=== PATIENT | female | born 1930 | race Caucasian/White ===

== ENCOUNTER → 2016-12-15 | Outpatient (CLI) | payer MEDICARE, BC ==
--- NOTE | 2016-12-15 15:10 | MR ---
EXAMINATION TYPE: MR shoulder RT wo con DATE OF EXAM: 12/15/2016 1:41 PM COMPARISON: NONE HISTORY: Right shoulder pain with difficulty raising overhead for 2 months after flu shot per patient . Injury of rotator cuff per order. TECHNIQUE: Multiplanar, multisequence imaging of the right shoulder is performed without contrast. FINDINGS: Rotator Cuff: There is full-thickness retracted tear of the supraspinatus muscle retracted to level o f the superior labrum on coronal image 16. There is full-thickness retracted tear of the infraspinatu s muscle retracted to level of distal clavicle. There is fairly moderate to advanced atrophy of muscl e bulk suggesting chronic tears. High riding humeral head is present suggesting chronic tear. Increas ed fluid signal along the atrophied muscle bulk is noted. Teres minor muscle bulk remains intact. The re is increased signal and thickening of the subscapularis tendon. Acromioclavicular Joint: There is spurring and joint space loss at acromioclavicular joint. There is prominent spur from the inferior margin of the distal clavicle on paracoronal image 13. Loss inferior fat plane is present. Glenohumeral Joint: High riding humeral head is noted. There is joint space loss with small to modera te glenohumeral joint effusion. No significant spurring is seen. Labrum: Superior labrum is blunted appearance with increased signal, tear is suspected at biceps anch or. Biceps Tendon: The long head of biceps is in normal location within bicipital groove. Some increased signal and thickening with surrounding fluid is present. Partial tear is suspected. Intra-articular p ortion is not well seen. Bone marrow signal: Heterogeneity consistent with red marrow reconversion is present. Other: No additional significant abnormality is appreciated. IMPRESSION: 1. Full-thickness retracted tears of the supraspinatus and infraspinatus tendons. High riding humeral head and muscular atrophy suggest most likely chronic in age. Edema along course of muscle suggests there could be acute on chronic injury. 2. 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 3. Bicipital tendinosis/partial tear of the intra-articular portion with proximal extra-articular ext ension suspected. 4. Superior labral tear presumed degenerative in etiology.
== END | disposition home or self-care (01) ==
LOC: RADMRIMAIN 13:05
PROVIDERS: ATTEND Psychiatry & Neurology Neurology
DX: S46.011A Strain of muscle(s) and tendon(s) of the rotator cuff of right shoulder, initial encounter (principal); M19.011 Primary osteoarthritis, right shoulder

== ENCOUNTER → 2017-05-29 | Outpatient (CLI) | payer MEDICARE, BC ==
--- NOTE | 2017-05-29 09:51 | ECHOF ---
Referral Reason:I10 Hypertension, I65.23 Occlusion and stenosis of MEASUREMENTS -------- HEIGHT: 154.9 cm WEIGHT: 61.2 kg BP: 183/83 IVSd: 1.3 cm (0.6 - 1.1) LVIDd: 3.6 cm (3.9 - 5.3) LVPWd: 1.3 cm (0.6 - 1.1) IVSs: 1.6 cm LVIDs: 2.0 cm LVPWs: 1.7 cm LAESV Index (A-L): 33.16 ml/m Ao Diam: 2.5 cm (2.0 - 3.7) AV Cusp: 0.8 cm (1.5 - 2.6) LA Diam: 3.7 cm (2.7 - 3.8) MV EXCURSION: 17.007 mm (> 18.000) MV EF SLOPE: 138 mm/s (70 - 150) EPSS: 0.7 cm MV E Jean Claude: 1.13 m/s MV DecT: 210 ms MV A Jean Claude: 1.21 m/s MV E/A Ratio: 0.94 AV maxP.63 mmHg AV meanP.41 mmHg AR PHT: 319 ms RAP: 5.00 mmHg RVSP: 43.42 mmHg FINDINGS -------- Sinus rhythm. This was a technically good study. There is mild concentric left ventricular hypertrophy. Overall left ventricular systolic function is normal with, an EF between 55 - 60 %. The right ventricle is normal in size and function. LA is midly dilated 29-33ml/m2. The right atrium is normal in size. Aortic valve is trileaflet and is severely thickened. Trace amount of aortic regurgitation. There is severe aortic stenosis present. Peak/mean gradient across the Aortic Valve is 56.63mmHg / 31.41mmHg. The mitral valve leaflets are mildly thickened. Mild mitral annular calcification present. Severe mitral regurgitation is present. Moderate tricuspid regurgitation present. There is moderate pulmonary hypertension. The right ventricular systolic pressure, as measured by Doppler, is 43.42mmHg. Pulmonic valve appears structurally normal. The aortic root size is normal. Normal inferior vena cava with normal inspiratory collapse consistent with estimated right atrial pressure of 5 mmHg. The pericardium is normal. CONCLUSIONS -------- 1. Sinus rhythm. 2. There is severe aortic stenosis present. 3. Peak/mean gradient across the Aortic Valve is 56.63mmHg / 31.41mmHg. 4. The mitral valve leaflets are mildly thickened. 5. Mild mitral annular calcification present. 6. Severe mitral regurgitation is present. 7. Moderate tricuspid regurgitation present. 8. There is moderate pulmonary hypertension. 9. The right ventricular systolic pressure, as measured by Doppler, is 43.42mmHg. 10. Pulmonic valve appears structurally normal. 11. The aortic root size is normal. 12. This was a technically good study. 13. Normal inferior vena cava with normal inspiratory collapse consistent with estimated right atrial pressure of 5 mmHg. 14. The pericardium is normal. 15. There is mild concentric left ventricular hypertrophy. 16. Overall left ventricular systolic function is normal with, an EF between 55 - 60 %. 17. The right ventricle is normal in size and function. 18. LA is midly dilated 29-33ml/m2. 19. The right atrium is normal in size. 20. Aortic valve is trileaflet and is severely thickened. 21. Trace amount of aortic regurgitation. HOTEL [employer]INO FLOORPERSON: Teresa Hernandez RDCS
--- NOTE | 2017-05-29 10:12 | US ---
EXAMINATION TYPE: US carotid duplex BILAT DATE OF EXAM: 05/29/2017 COMPARISON: Previous exam 02/16/2014 CLINICAL HISTORY: I10 Hypertension, I65.23 Occlusion and stenosis of. bruit, HTN- on meds EXAM MEASUREMENTS: RIGHT: Peak Systolic Velocity (PSV) cm/sec ----- Right CCA: 59.0 ----- Right ICA: 64.6 ----- Right ECA: 71.7 ICA/CCA ratio: 1.1 RIGHT: End Diastole cm/sec ----- Right CCA: 15.4 ----- Right ICA: 14.0 ----- Right ECA: 7.6 LEFT: Peak Systolic Velocity (PSV) cm/sec ----- Left CCA: 62.4 ----- Left ICA: 63.4 ----- Left ECA: 60.8 ICA/CCA ratio: 1.0 LEFT: End Diastole cm/sec ----- Left CCA: 12.5 ----- Left ICA: 18.0 ----- Left ECA: 0.0 VERTEBRALS (direction of flow): Right Vertebral: Antegrade Left Vertebral: Antegrade No significant stenosis or elevated velocities. Bilateral wall thickening. Plaque seen in bilateral bulbs and left proximal ICA. IMPRESSION: No hemodynamic significant stenosis of the proximal internal carotid arteries bilaterall y by Doppler criteria, an indirect measurement of carotid stenosis
== END | disposition home or self-care (01) ==
LOC: RADECHMAIN 08:16
PROVIDERS: ATTEND Internal Medicine Cardiovascular Disease
DX: I65.23 Occlusion and stenosis of bilateral carotid arteries (principal)
CPT/HCPCS: 93306; 93880

== ENCOUNTER 2019-03-14 10:24 | Emergency (ER) | payer MEDICARE, BC ==
[2019-03-14 10:32] LABS: Glucose,Whole Blood 129 mg/dL (75-99)
--- NOTE | 2019-03-14 10:39 | ED ---
General Adult HPI - General Stated complaint: Altered Mental Status Time Seen by Provider: 03/14/19 10:26 - History of Present Illness Initial comments: Dictation was produced using [employer] dictation software. please excuse any grammatical, word or spelling errors. Chief Complaint: 89-year-old female brought to the emergency department for strokelike symptoms. History of Present Illness: She is 81-year-old female. She has multiple comorbidities including chronic right upper extremity weakness, previous CVAs and TIAs. She was noted to have severe confusion upon waking this morning. She was last seen normal proximal to 1:30 last night. who is at bedside reports that they were playing cards. She woke up this morning and was found to be confused she had repetitive speech and severe aphasia. Patient unable to 5 days. This time secondary to mental status. The ROS documented in this emergency department record has been reviewed and confirmed by me. Those systems with pertinent positive or negative responses have been documented in the HPI. All other systems are other negative and/or noncontributory. PHYSICAL EXAM: General Impression: No acute distress HEENT: Normocephalic atraumatic, extra-ocular movements intact, pupils equal and reactive to light bilaterally, mucous membranes moist. Cardiovascular: Heart regular rate and rhythm, S1&S2 audible, no murmurs, rubs or gallops Chest: Lungs clear to auscultation bilaterally, no rhonchi, no wheeze, no rales Abdomen: Bowel sounds present, abdomen soft, non-tender, non-distended, no organomegaly Musculoskeletal: Pulses present and equal in all extremities, no peripheral edema Motor: no focal deficits noted Neurological: Severely aphasic, right upper extremity drift, right lower extremity drift, does not follow commands, no facial droop Skin: Intact with no visualized rashes Psych: Normal affect and mood ED course: 89-year-old female presents for strokelike symptoms. Last seen normal was 1:32 AM last night. It is outside of the TPA window. Patient given initial NIH of 12. Patient is extremely aphasic and unable to follow commands. CT imaging obtained. CT noncontrast shows no acute processes. CT angios does not show any occluded large vessels. Laboratory evaluation obtained showing no acute processes. Patient observed in our emergency department for several hours with no changes in mental status. Her collateral information was obtained from patient's daughter who is adamant that her symptoms are secondary to complex migraines. Patient however has not seen a neurologist and has not been formally diagnosed or worked up for her neurologic issues. Furthermore, patient has not had any MRIs or extensive neurologic studies or imaging. Daughter does report patient has had symptoms like this in the past. She states that she will take oral analgesics to treat her headache and would revert back to being normal. [place] esparzakai requests that patient be treated for migraine because she feels that patient's symptoms will improve and that she can help make a decision for final disposition from our emergency room. Patient treated with aspirin. Patient was observed in emergency department for several hours per she is reevaluated after headache cocktail with no changes in medical status. Family had a very difficult time he decision for final disposition. After several hours they decided that it was in the patient's best interest to be transferred to [facility] because they prefer that patient be evaluated by Dr. Rivera. Discussed patient is with Dr. Hood of [facility] who discussed patient case with Dr. Rivera. Dr. Rivera evidently told Dr. Hood that patient would be better off being transferred to [facility] for cerebral angiogram for possible small vessel occlusion that may need intervention. This plan was discussed with family who was agreeable for transfer to [facility]. Patient case is discussed with Dr. Toth from [facility] who asked that we discussed patient case with neuro interventional list prior to transfer. EKG interpretation: Ventricular rate 84, sinus rhythm, OH interval 226, QRS 70, QTc 456. no QTC prolongation, no ST or T-wave changes noted. Overall, this EKG is unremarkable - Related Data Home Medications Medication Instructions Recorded Confirmed Aspirin EC [Ecotrin Low Dose] 81 mg PO DAILY 03/14/19 03/14/19 Citrical 1 tab PO HS 03/14/19 03/14/19 Clopidogrel Bisulfate [Plavix] 75 mg PO DAILY 03/14/19 03/14/19 Losartan Potassium 50 mg PO DAILY 03/14/19 03/14/19 Ubidecarenone [Co Q-10] 100 mg PO HS 03/14/19 03/14/19 Allergies Allergy/AdvReac Type Severity Reaction Status Date / Time Penicillins Allergy Rash/Hives Verified 03/14/19 10:55 Sulfa (Sulfonamide Allergy Rash/Hives Verified 03/14/19 10:55 Antibiotics) Review of Systems ROS Statement: Those systems with pertinent positive or pertinent negative responses have been documented in the HPI. ROS Other: All systems not noted in ROS Statement are negative. Course Vital Signs 03/14/19 03/14/19 03/14/19 10:24 10:39 11:00 Temperature 97.3 F L Pulse Rate 84 84 83 Respiratory 18 18 18 Rate Blood Pressure 188/82 175/86 174/92 O2 Sat by Pulse 98 98 98 Oximetry Medical Decision Making - Lab Data Result diagrams: 03/14/19 10:45 03/14/19 10:45 Lab Results 03/14/19 03/14/19 03/14/19 Range/Units 10:29 10:45 10:45 WBC 4.8 (3.8-10.6) k/uL RBC 4.34 (3.80-5.40) m/uL Hgb 13.4 (11.4-16.0) gm/dL Hct 40.0 (34.0-46.0) % MCV 92.3 (80.0-100.0) fL MCH 31.0 (25.0-35.0) pg MCHC 33.6 (31.0-37.0) g/dL RDW 13.2 (11.5-15.5) % Plt Count 161 (150-450) k/uL Neutrophils % 70 % Lymphocytes % 17 % Monocytes % 7 % Eosinophils % 4 % Basophils % 1 % Neutrophils # 3.3 (1.3-7.7) k/uL Lymphocytes # 0.8 L (1.0-4.8) k/uL Monocytes # 0.3 (0-1.0) k/uL Eosinophils # 0.2 (0-0.7) k/uL Basophils # 0.0 (0-0.2) k/uL PT (9.0-12.0) sec INR (<1.2) APTT (22.0-30.0) sec Sodium 139 (137-145) mmol/L Potassium 4.0 (3.5-5.1) mmol/L Chloride 105 (98-107) mmol/L Carbon Dioxide 24 (22-30) mmol/L Anion Gap 10 mmol/L BUN 17 (7-17) mg/dL Creatinine 0.74 (0.52-1.04) mg/dL Est GFR (CKD-EPI)AfAm 84 (>60 ml/min/1.73 sqM) Est GFR (CKD-EPI)NonAf 73 (>60 ml/min/1.73 sqM) Glucose 104 H (74-99) mg/dL POC Glucose (mg/dL) 129 H (75-99) mg/dL POC Glu Hand Mica Plate Layer ID PetitNaa feliciano Calcium 9.3 (8.4-10.2) mg/dL Total Bilirubin 0.6 (0.2-1.3) mg/dL AST 26 (14-36) U/L ALT 27 (9-52) U/L Alkaline Phosphatase 106 (38-126) U/L Troponin I (0.000-0.034) ng/mL Total Protein 7.0 (6.3-8.2) g/dL Albumin 4.1 (3.5-5.0) g/dL Urine Color Urine Appearance (Clear) Urine pH (5.0-8.0) Ur Specific Gilbert (1.001-1.035) Urine Protein (Negative) Urine Glucose (UA) (Negative) Urine Ketones (Negative) Urine Blood (Negative) Urine Nitrite (Negative) Urine Bilirubin (Negative) Urine Urobilinogen (<2.0) mg/dL Ur Leukocyte Esterase (Negative) Urine RBC (0-5) /hpf Urine WBC (0-5) /hpf Urine Bacteria (None) /hpf Urine Mucus (None) /hpf 03/14/19 03/14/19 03/14/19 Range/Units 10:45 10:45 13:05 WBC (3.8-10.6) k/uL RBC (3.80-5.40) m/uL Hgb (11.4-16.0) gm/dL Hct (34.0-46.0) % MCV (80.0-100.0) fL MCH (25.0-35.0) pg MCHC (31.0-37.0) g/dL RDW (11.5-15.5) % Plt Count (150-450) k/uL Neutrophils % % Lymphocytes % % Monocytes % % Eosinophils % % Basophils % % Neutrophils # (1.3-7.7) k/uL Lymphocytes # (1.0-4.8) k/uL Monocytes # (0-1.0) k/uL Eosinophils # (0-0.7) k/uL Basophils # (0-0.2) k/uL PT 10.6 (9.0-12.0) sec INR 1.0 (<1.2) APTT 25.0 (22.0-30.0) sec Sodium (137-145) mmol/L Potassium (3.5-5.1) mmol/L Chloride (98-107) mmol/L Carbon Dioxide (22-30) mmol/L Anion Gap mmol/L BUN (7-17) mg/dL Creatinine (0.52-1.04) mg/dL Est GFR (CKD-EPI)AfAm (>60 ml/min/1.73 sqM) Est GFR (CKD-EPI)NonAf (>60 ml/min/1.73 sqM) Glucose (74-99) mg/dL POC Glucose (mg/dL) (75-99) mg/dL POC Glu Hand Mica Plate Layer ID Calcium (8.4-10.2) mg/dL Total Bilirubin (0.2-1.3) mg/dL AST (14-36) U/L ALT (9-52) U/L Alkaline Phosphatase (38-126) U/L Troponin I <0.012 (0.000-0.034) ng/mL Total Protein (6.3-8.2) g/dL Albumin (3.5-5.0) g/dL Urine Color Light Yellow Urine Appearance Clear (Clear) Urine pH 7.0 (5.0-8.0) Ur Specific Gilbert 1.011 (1.001-1.035) Urine Protein Negative (Negative) Urine Glucose (UA) Negative (Negative) Urine Ketones Negative (Negative) Urine Blood Negative (Negative) Urine Nitrite Positive H (Negative) Urine Bilirubin Negative (Negative) Urine Urobilinogen <2.0 (<2.0) mg/dL Ur Leukocyte Esterase Trace H (Negative) Urine RBC 1 (0-5) /hpf Urine WBC 7 H (0-5) /hpf Urine Bacteria Rare H (None) /hpf Urine Mucus Rare H (None) /hpf Disposition Clinical Impression: Aphasia Disposition: OTHER INSTITUTION NOT DEFINED Condition: Fair Referrals: Jack Salas MD [Primary Care Provider] - 1-2 days Time of Disposition: 14:17 - Out of Hospital Transfer - Req. Specs Out of Hospital Transfer - Requested Specifics: Other [facility] ([facility])
[2019-03-14 10:57] LABS: Basophils % (A) 1 %; Eosinophils # (A) 0.2 k/uL (0-0.7); Eosinophils % (A) 4 %; HGB 13.4 gm/dL (11.4-16.0); Lymphocytes # (A) 0.8 k/uL (1.0-4.8); Lymphocytes % (A) 17 %; MCHC 33.6 g/dL (31.0-37.0); MCV 92.3 fL (80.0-100.0); Mean Platelet Volume 6.7; Monocytes # (A) 0.3 k/uL (0-1.0); Monocytes % (A) 7 %; Neutrophils # (A) 3.3 k/uL (1.3-7.7); Neutrophils % (A) 70 %; Platelet Count 161 k/uL (150-450); RBC 4.34 m/uL (3.80-5.40); RDW 13.2 % (11.5-15.5); WBC 4.8 k/uL (3.8-10.6)
[2019-03-14 11:05] LABS: Albumin 4.1 g/dL (3.5-5.0); Calcium 9.3 mg/dL (8.4-10.2); Total Bilirubin 0.6 mg/dL (0.2-1.3)
[2019-03-14 11:14] LABS: Prothrombin Time 10.6 sec (9.0-12.0)
--- NOTE | 2019-03-14 11:14 | CT ---
EXAMINATION TYPE: CT brain wo con for TPA DATE OF EXAM: 03/14/2019 HISTORY: Altered mental status, cannot speak clearly, confusion CT DLP: 1140.2 mGycm. Automated Exposure Control for Dose Reduction was Utilized. TECHNIQUE: CT scan of the head is performed without contrast. COMPARISON: CT brain February 16, 2014 FINDINGS: There is no acute intracranial hemorrhage or midline shift identified. There is diffuse v entricular and sulcal prominence consistent with diffuse age-related cerebral atrophy. There is low- attenuation in the periventricular white matter consistent with chronic small vessel ischemic change. Scleral calcification both globes are present. IMPRESSION: No acute intracranial hemorrhage or midline shift. There is moderate diffuse age-relate d cerebral atrophy and chronic small vessel ischemic change redemonstrated.
--- NOTE | 2019-03-14 11:40 | XR ---
EXAMINATION TYPE: XR chest 2V DATE OF EXAM: 03/14/2019 COMPARISON: 02/16/2014 TECHNIQUE: PA and lateral views submitted. HISTORY: Altered mental status FINDINGS: The lungs are clear and there is no pneumothorax, pleural effusion, or focal pneumonia. Arthropathy of the shoulders with diffuse osteopenia. Postsurgical change in the noted. Degenerative change of t he spine. Hyperinflation suggests COPD. IMPRESSION: 1. No acute process.
--- NOTE | 2019-03-14 11:45 | CT ---
EXAMINATION TYPE: CT angio head neck DATE OF EXAM: 03/14/2019 HISTORY: Altered mental status and changes. Trouble speaking and confusion. COMPARISON: NONE CT DLP: 335.2 mGycm. Automated Exposure Control for Dose Reduction was Utilized. TECHNIQUE: CTA scan of the head and neck are performed with IV Contrast, patient injected with 65 mL of Isovue 370, axial images are obtained, coronal and sagittal reformatted images are reviewed. Thre e-D reconstructed images are created on an independent workstation and reviewed. FINDINGS: Carotid/Vascular Structures: There is normal three-vessel origin from aortic arch. There is mild calc ified plaque in the aortic arch extending into descending aorta. Subclavian arteries bilaterally show no significant stenosis, mild calcified plaque at proximal left subclavian artery is present. Right common carotid artery shows normal origin from right brachiocephalic artery. There is no significant plaque or stenosis. There is moderate calcified plaque at carotid bulb extending into proximal internet sales consultant al carotid artery without significant stenosis. There is mild calcified plaque supraclinoid segment. There is patent right external carotid artery without significant plaque or stenosis. There is mild calcified plaque left carotid bulb extending into proximal internal carotid artery. The re is no significant stenosis of left common or internal carotid artery. There is patent external car otid artery without significant plaque or stenosis. There is dominant left vertebral artery. Right vertebral artery is diminutive or hypoplastic. There i s no significant focal stenosis in the posterior circulation. Patent bilateral posterior communicatin g arteries are identified. Anterior circulation shows patent anterior communicating artery. There is no significant focal stenos is or aneurysmal change. Other: Mild to moderate disc space narrowing with moderate spurring C3-C4 level is identified. There is additional mild to moderate multilevel disc space narrowing and spurring in the cervical spine. Deysi ng apices show mild emphysematous change. IMPRESSION: 1. No significant stenosis in common or internal carotid arteries bilaterally. Patent dominant left v ertebral artery noted. 2. No significant stenosis or aneurysmal change at level of [place].
[2019-03-14] MEDS ORDERED: diphenhydrAMINE 50 MG/ML 1 ML VIAL IVP STA (11:56)
[2019-03-14] MEDS ORDERED: SODIUM CHLORIDE 0.9% 1,000 ML IV STA (11:56)
[2019-03-14] MEDS ORDERED: ONDANSETRON 4 MG/2 ML VIAL IVP STA (11:56)
[2019-03-14] MEDS ORDERED: KETOROLAC 30 MG/ML 1 ML VIAL IVP STA (11:57)
[2019-03-14] MEDS ORDERED: ASPIRIN 81 MG PO STA (11:59)
[2019-03-14 13:28] LABS: Appearance,Urine Clear (Clear); Bacteria,Urine Rare /hpf; Bilirubin,Urine Negative (Negative); Blood,Urine Negative (Negative); Color,Urine Light Yellow; Glucose,Urine (UA) Negative (Negative); Ketones,Urine Negative (Negative); Leukocyte Esterase,Urine Trace (Negative); Mucus,Urine Rare /hpf; Nitrite,Urine Positive (Negative); Protein,Urine Negative (Negative); RBC,Urine 1 /hpf (0-5); Specific Gravity,Urine 1.011 (1.001-1.035); Urobilinogen,Urine <2.0 mg/dL (<2.0); WBC,Urine 7 /hpf (0-5)
[2019-03-14] MEDS ORDERED: cefTRIAXone IN SWFI 1,000 MG/10 ML SYRINGE IVP STA (14:25)
[2019-03-14] MEDS ORDERED: MORPHINE SULFATE 2 MG/ML SYRINGE IVP STA (14:49)
[2019-03-14] MEDS ORDERED: levETIRAcetam IV 1,000 MG in SALINE 1 100ML.BAG IVPB STA (14:51)
[2019-03-14 15:39] VITALS: BP 177/84; PULSE 81; RESP 18; TEMP 97.9
== END 2019-03-14 15:44 | disposition other institution (70) ==
LOC: EC 10:24
DX: R47.01 Aphasia (principal); R41.82 Altered mental status, unspecified; R41.0 Disorientation, unspecified; Z86.73 Personal history of transient ischemic attack (TIA), and cerebral infarction without residual deficits; Z79.82 Long term (current) use of aspirin; Z79.01 Long term (current) use of anticoagulants; Z79.899 Other long term (current) drug therapy; Z88.0 Allergy status to penicillin; Z88.2 Allergy status to sulfonamides
CPT/HCPCS: 99285 ×2; 96365 ×2; 96375 ×6; 96361 ×2; 36415; 93005; 80053; 84484; 85025; 85610; 85730; 81001; 71046; 70496; 70450; 70498; J1200; J2405; J0696; J1885; J2270; J1953; Q9967

== ENCOUNTER → 2019-03-29 | Outpatient (CLI) | payer MEDICARE, BC ==
--- NOTE | 2019-03-29 15:35 | MR ---
EXAMINATION TYPE: MR brain wo con DATE OF EXAM: 03/29/2019 COMPARISON: CT dated 03/14/2019 HISTORY: Encephalopathy. Patient refused contrast. TECHNIQUE: Multiplanar, multisequence images of the brain and brainstem is performed without intravenous contras t. FINDINGS: Diffusion weighted images demonstrate no evidence of a recent infarct or other diffusion ab normality. There is no extra-axial fluid collection. Moderate burden nonspecific white matter change s seen within the subcortical and periventricular white matter. No gyral signal abnormality is seen i n this patient with encephalopathy. The ventricular system and cisternal spaces are symmetric in size compatible with age-related volume loss. However component of normal pressure hydrocephalus cannot b e excluded. Prominent perivascular spaces seen near the left basal ganglia. Multiple old punctate lacunar infarct s are seen of the boone radiata and centrum semiovale. Midline structures demonstrate normal morphology. The craniocervical junction appears within normal limits. The dural venous sinuses appear patent. The visualized sinuses are clear and the globes are i ntact. Scant amount of fluid is seen within the mastoid air cells. Correlate with point tenderness to exclude mastoiditis. Major intracranial flow voids are maintained other than a diminutive or right v ertebral artery. IMPRESSION: 1. No acute infarct, midline shift or mass effect. 2. No abnormal gyral signal in this patient with encephalopathy. 3. In addition to cerebral atrophy normal pressure hydrocephalus could be considered. 4. Multiple punctate old lacunar injuries in the centrum semiovale and to lesser degree the boone ra diata. Moderate burden nonspecific white matter change is present predominantly in the periventricula r white matter and to a lesser degree in the subcortical white matter, likely on the basis of chronic microangiopathy. 5. The right vertebral artery is either extremely diminutive or occluded.
== END | disposition home or self-care (01) ==
LOC: RADMRIMAIN 11:58
PROVIDERS: ATTEND Internal Medicine
DX: G31.9 Degenerative disease of nervous system, unspecified (principal); R90.89 Other abnormal findings on diagnostic imaging of central nervous system
CPT/HCPCS: 70551

== ENCOUNTER → 2020-08-03 | Outpatient (CLI) | payer MEDICARE, BC ==
[2020-08-03 16:13] LABS: HCT 30.5 % (34.0-46.0); Hypochromasia Moderate; MCH 29.1 pg (25.0-35.0); MCHC 32.4 g/dL (31.0-37.0); Mean Platelet Volume 7.1; Platelet Count 240 k/uL (150-450); Poikilocytosis Slight; RBC 3.39 m/uL (3.80-5.40); RDW 14.6 % (11.5-15.5); WBC 8.6 k/uL (3.8-10.6)
[2020-08-03 17:37] LABS: HGB 9.9 gm/dL (11.4-16.0)
== END | disposition home or self-care (01) ==
LOC: LABWHC1 16:00
PROVIDERS: ATTEND Registered Nurse
DX: D64.9 Anemia, unspecified (principal)
CPT/HCPCS: 36415; 85027